=== PATIENT | female | born 1975 | race African-American/Black ===

== ENCOUNTER 2020-12-03 15:05 | Emergency (ER) | payer OTHER ==
[2020-12-03 15:42] VITALS: BMI 20.5
[2020-12-03] MEDS ORDERED: ONDANSETRON 4 MG/2 ML VIAL IVPUSH ONE ×2 (16:28→19:46)
[2020-12-03] MEDS ORDERED: morphine CARPU-JECT 4 MG/1 ML DISP.SYRIN IVPUSH ONE ×2 (16:40→19:45)
[2020-12-03] MEDS ORDERED: SODIUM CHLORIDE 1,000 ML IV STA ×2 (16:40→21:32)
[2020-12-03] MEDS ORDERED: ONDANSETRON 4 MG/2 ML VIAL ONE ×2 (16:43→20:23)
[2020-12-03] MEDS ORDERED: FAMOTIDINE 20 MG/50 ML IVPB 20 MG/50 ML MG IVPB ONE (16:44)
[2020-12-03] MEDS ORDERED: morphine SULFATE 4 MG/ML VIAL ONE ×2 (17:06→20:23)
[2020-12-03 17:22] LABS: BASO % 0.5 % (0-2.0); EOS % 0.1 % (0-4.5); HEMATOCRIT 42.2 % (32.4-45.2); HEMOGLOBIN 14.2 GM/dL (10.7-15.3); LYMPH % 6.9 % (8-40); MCH 28.4 pg (25.7-33.7); MCHC 33.6 g/dl (32.0-36.0); MEAN CELL VOLUME 84.5 fl (80-96); MEAN PLT VOLUME 10.1 fl (7.5-11.1); MONO % 3.1 % (3.8-10.2); NEUT % 89.4 % (42.8-82.8); PLATELET COUNT 200 10^3/uL (134-434); RBC 4.99 M/mm3 (3.60-5.2); RDW 14.6 % (11.6-15.6); WHITE BLOOD COUNT 12.6 K/mm3 (4.0-10.0)
[2020-12-03 17:29] LABS: INR 0.91 (0.83-1.09); PROTHROMBIN TIME (PATIENT) 11.1 SEC (9.7-13.0)
[2020-12-03 17:41] LABS: CHLORIDE 108 mmol/L (98-107); SODIUM 141 mmol/L (136-145)
[2020-12-03 17:44] LABS: ALBUMIN 3.5 g/dl (3.4-5.0); ANION GAP 8 MMOL/L (8-16); BLOOD UREA NITROGEN 10.5 mg/dL (7-18); CALCIUM 8.9 mg/dL (8.5-10.1); CO2 25 mmol/L (21-32); GLUCOSE,RANDOM 104 mg/dL (74-106); LIPASE 56 U/L (73-393)
[2020-12-03 17:47] LABS: CREATININE 0.8 mg/dL (0.55-1.3); SGOT/AST 16 U/L (15-37); SGPT/ALT 16 U/L (13-61)
[2020-12-03 17:48] LABS: BILIRUBIN,TOTAL 0.7 mg/dL (0.2-1); TOT PROT 7.3 g/dl (6.4-8.2)
[2020-12-03 17:50] LABS: ALK PHOS 60 U/L (45-117)
[2020-12-03 22:44] LABS: EPI CELLS 20 /uL (0-25.1); HYALINE CASTS 4 /uL (0-3.1); URINE APPEARANCE CLEAR; URINE BACTERIA 22 /uL (0-1359); URINE BILIRUBIN NEGATIVE (NEGATIVE); URINE COLOR YELLOW; URINE GLUCOSE (UA) NEGATIVE (NEGATIVE); URINE KETONE 1+ (NEGATIVE); URINE LEUK ESTERASE NEGATIVE (NEGATIVE); URINE NITRITE NEGATIVE (NEGATIVE); URINE PROTEIN NEGATIVE (NEGATIVE); URINE RBC 70 /uL (0-23.9); URINE UROBILINOGEN 0.2 mg/dL (0.2-1.0); URINE WBC 5 /uL (0-25.8)
[2020-12-03 22:58] VITALS: BP 119/79; PULSE 60; TEMP 98.2
== END 2020-12-03 22:59 | disposition short-term general hospital (02) ==
LOC: JER 15:05
PROC: 3E033NZ Introduction of Analgesics, Hypnotics, Sedatives into Peripheral Vein, Percutaneous Approach (ICD-10-PCS; principal; 2020-12-03)
PROC: 3E033GC Introduction of Other Therapeutic Substance into Peripheral Vein, Percutaneous Approach (ICD-10-PCS; 2020-12-03)
PROC: 3E0337Z Introduction of Electrolytic and Water Balance Substance into Peripheral Vein, Percutaneous Approach (ICD-10-PCS; 2020-12-03)
PROC: 3E033GC Introduction of Other Therapeutic Substance into Peripheral Vein, Percutaneous Approach (ICD-10-PCS; 2020-12-03)
PROC: 3E033GC Introduction of Other Therapeutic Substance into Peripheral Vein, Percutaneous Approach (ICD-10-PCS; 2020-12-03)
PROC: 3E0337Z Introduction of Electrolytic and Water Balance Substance into Peripheral Vein, Percutaneous Approach (ICD-10-PCS; 2020-12-03)
DX: K56.7 Ileus, unspecified (principal); R11.2 Nausea with vomiting, unspecified
CPT/HCPCS: 36415; 74177-TC; 80053; 81003; 83605; 83690; 84484; 85025; 85610; 85730; 86850; 86900; 86901; 93005; 93010; 99285-25; C9803; Q9967; U0003; U0005

== ENCOUNTER 2020-12-22 21:36 | Emergency (ER) | payer OTHER ==
[2020-12-22 21:41] VITALS: BP 107/75; PULSE 87; TEMP 98; BMI 22.6
[2020-12-22] MEDS ORDERED: SODIUM CHLORIDE 1,000 ML IV STA (22:04)
[2020-12-22] MEDS ORDERED: METOCLOPRAMIDE HCL INJECTION 10 MG/2 ML VIAL IVPUSH ONE (22:04)
[2020-12-22] MEDS ORDERED: FAMOTIDINE 20 MG/50 ML IVPB 20 MG/50 ML MG IVPB ONE ×2 (22:09→22:25)
[2020-12-22] MEDS ORDERED: ONDANSETRON 4 MG/2 ML VIAL IVPUSH ONE (22:09)
[2020-12-22] MEDS ORDERED: ONDANSETRON 4 MG/2 ML VIAL ONE (22:25)
[2020-12-22 22:43] LABS: EPI CELLS 13 /uL (0-25.1); HYALINE CASTS 0 /uL (0-3.1); URINE APPEARANCE CLEAR; URINE BACTERIA 355 /uL (0-1359); URINE BILIRUBIN NEGATIVE (NEGATIVE); URINE COLOR YELLOW; URINE GLUCOSE (UA) NEGATIVE (NEGATIVE); URINE KETONE 1+ (NEGATIVE); URINE LEUK ESTERASE TRACE (NEGATIVE); URINE NITRITE NEGATIVE (NEGATIVE); URINE PROTEIN NEGATIVE (NEGATIVE); URINE RBC 5 /uL (0-23.9); URINE UROBILINOGEN 0.2 mg/dL (0.2-1.0); URINE WBC 7 /uL (0-25.8)
[2020-12-22] MEDS ORDERED: ACETAMINOPHEN 1000 MG/100 ML VIAL (NON FORMULARY) IVPB ONE (22:54)
[2020-12-22] MEDS ORDERED: ACETAMINOPHEN INJECTION 100 ML IVPB ONE (22:59)
[2020-12-22 23:01] LABS: BASO % 0.9 % (0-2.0); EOS % 0.1 % (0-4.5); HEMATOCRIT 38.8 % (32.4-45.2); HEMOGLOBIN 13.1 GM/dL (10.7-15.3); LYMPH % 9.8 % (8-40); MCH 27.9 pg (25.7-33.7); MCHC 33.9 g/dl (32.0-36.0); MEAN CELL VOLUME 82.3 fl (80-96); MEAN PLT VOLUME 9.2 fl (7.5-11.1); MONO % 2.7 % (3.8-10.2); NEUT % 86.5 % (42.8-82.8); PLATELET COUNT 303 10^3/uL (134-434); RBC 4.71 M/mm3 (3.60-5.2); RDW 14.2 % (11.6-15.6); WHITE BLOOD COUNT 13.2 K/mm3 (4.0-10.0)
[2020-12-22 23:48] LABS: CHLORIDE 102 mmol/L (98-107); SODIUM 137 mmol/L (136-145)
[2020-12-22 23:50] LABS: CALCIUM 9.6 mg/dL (8.5-10.1)
[2020-12-22 23:51] LABS: ANION GAP 7 MMOL/L (8-16); BLOOD UREA NITROGEN 10.5 mg/dL (7-18); CO2 29 mmol/L (21-32); GLUCOSE,RANDOM 99 mg/dL (74-106)
[2020-12-22 23:54] LABS: BILIRUBIN,TOTAL 0.9 mg/dL (0.2-1); CREATININE 0.9 mg/dL (0.55-1.3); SGOT/AST 14 U/L (15-37); SGPT/ALT 17 U/L (13-61); TOT PROT 7.9 g/dl (6.4-8.2)
[2020-12-22 23:57] LABS: ALK PHOS 67 U/L (45-117)
== END 2020-12-23 01:03 | disposition home or self-care (01) ==
LOC: JER 21:36
PROC: 3E0333Z Introduction of Anti-inflammatory into Peripheral Vein, Percutaneous Approach (ICD-10-PCS; principal; 2020-12-22)
PROC: 3E033GC Introduction of Other Therapeutic Substance into Peripheral Vein, Percutaneous Approach (ICD-10-PCS; 2020-12-22)
PROC: 3E033GC Introduction of Other Therapeutic Substance into Peripheral Vein, Percutaneous Approach (ICD-10-PCS; 2020-12-22)
PROC: 3E0337Z Introduction of Electrolytic and Water Balance Substance into Peripheral Vein, Percutaneous Approach (ICD-10-PCS; 2020-12-22)
DX: K21.9 Gastro-esophageal reflux disease without esophagitis (principal); R11.2 Nausea with vomiting, unspecified
CPT/HCPCS: 36415; 80053; 81003; 84484; 84703; 85025; 93005; 93010; 99284-25; J0131